=== PATIENT | male | born 1955 | race African-American/Black ===

== ENCOUNTER 2017-10-12 14:54 | Inpatient (IN) | payer OTHER ==
[2017-10-12 17:00] VITALS: BMI 22.3
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
[2017-10-12] MEDS ORDERED: NICOTINE POLACRILEX 2 MG GUM BUC PRN (21:05)
[2017-10-12] MEDS ORDERED: chlordiazePOXIDE HCL 25 MG CAPSULE PO ONE (21:05)
[2017-10-12] MEDS ORDERED: MENTHOL/PHENOL 1 EACH UD MM PRN (21:05)
[2017-10-12] MEDS ORDERED: P-EPHED 60MG/TRIPROLIDI 2.5MG TABLET PO PRN (21:05)
[2017-10-12] MEDS ORDERED: MAGNESIUM HYDROX 2400MG/30ML ORAL SUSPENSION 30 ML CUP PO PRN (21:05)
[2017-10-12] MEDS ORDERED: ACETAMINOPHEN 325 MG TABLET (FP) PO PRN (21:05)
[2017-10-12] MEDS ORDERED: TRIMETHOBENZAMIDE HCL 200MG/2ML INJ IM ONE (21:08)
[2017-10-12] MEDS ORDERED: chlordiazePOXIDE HCL 25 MG CAPSULE PO PRN (21:13)
[2017-10-12] MEDS ORDERED: guaiFENesin/D-METHORPHAN HB 10 ML UNIT-DOSE CUPS PO PRN (21:15)
[2017-10-12] MEDS ORDERED: hydrOXYzine PAMOATE 50 MG CAPSULE (FP) PO PRN (21:15)
[2017-10-12] MEDS ORDERED: IBUPROFEN 400 MG TABLET (FP) PO PRN (21:15)
[2017-10-12] MEDS ORDERED: LOPERAMIDE HCL 2 MG CAPSULE PO PRN (21:16)
[2017-10-12] MEDS ORDERED: MAG HYDROX/AL HYDROX/SIMETH 30 ML UNIT-DOSE CUP PO PRN (21:16)
[2017-10-12] MEDS ORDERED: MAGNESIUM CITRATE 300 ML BOTTLE PO PRN (21:17)
[2017-10-12] MEDS: CYCLOBENZAPRINE HCL 5 MG TABLET PO SCH (21:56)
[2017-10-12] MEDS: THIAMINE HCL 100 MG TABLET (FP) PO SCH (21:56)
[2017-10-12] MEDS ORDERED: MELATONIN 5 MG TABLETS PO PRN (22:00)
[2017-10-12] MEDS: chlordiazePOXIDE HCL 25 MG CAPSULE PO SCH (22:03)
[2017-10-13] MEDS: CYCLOBENZAPRINE HCL 5 MG TABLET PO SCH ×3 (06:01→22:33)
[2017-10-13] MEDS: chlordiazePOXIDE HCL 25 MG CAPSULE PO SCH ×4 (06:01→22:33)
[2017-10-13] MEDS ORDERED: METHADONE 40 MG, METHADONE 30 MG PO ONE (09:00)
[2017-10-13] MEDS ORDERED: METHADONE HCL 10 MG TABLET PO ONE (09:30)
[2017-10-13] MEDS ORDERED: METHADONE HCL 10 MG TABLET ONE (10:07)
[2017-10-13] MEDS ORDERED: METHADONE HCL 40 MG DISPERSABLE TABLET ONE (10:07)
[2017-10-13 10:12] LABS: HEMATOCRIT 34.3 % (35.4-49); HEMOGLOBIN 11.1 GM/dL (11.7-16.9); MCHC 32.4 g/dl (32.0-35.9); MEAN CELL VOLUME 83.2 fl (80-96); MEAN PLT VOLUME 8.7 fl (7.5-11.1); PLATELET COUNT 116 K/MM3 (134-434); RBC 4.12 M/mm3 (4.00-5.60); RDW 17.4 % (11.9-15.9); WHITE BLOOD COUNT 2.9 K/mm3 (4.0-10.0)
[2017-10-13 10:21] LABS: ALBUMIN 2.8 g/dl (3.4-5.0); ANION GAP 9 (8-16); BILIRUBIN,TOTAL 1.1 mg/dL (0.2-1.0); BLOOD UREA NITROGEN 5 mg/dL (7-18); CHLORIDE 94 mmol/L (98-107); CO2 33 mmol/L (21-32); GLUCOSE,RANDOM 86 mg/dL (74-106); POTASSIUM 3.7 mmol/L (3.5-5.1); SGOT/AST 235 U/L (15-37); SGPT/ALT 77 U/L (12-78); SODIUM 136 mmol/L (136-145); TOT PROT 6.2 g/dl (6.4-8.2)
[2017-10-13 10:24] LABS: ALK PHOS 151 U/L (45-117); CALCIUM 8.1 mg/dL (8.5-10.1); CREATININE 0.6 mg/dL (0.7-1.3)
[2017-10-13] MEDS: NICOTINE 14 MG/24 HOURS TOPICAL PATCH TD SCH (10:25)
[2017-10-13] MEDS: PRENATAL VITAMINS W/ FOLIC ACID TABLET (FP) PO SCH (10:25)
--- NOTE | 2017-10-13 11:28 | EKG ---
Test Reason : Blood Pressure : / mmHG Vent. Rate : 109 BPM Atrial Rate : 109 BPM P-R Int : 132 ms QRS Dur : 072 ms QT Int : 314 ms P-R-T Axes : 075 -22 066 degrees QTc Int : 422 ms SINUS TACHYCARDIA POOR R WAVE PROGRESSION POSSIBLE RIGHT VENTRICULAR HYPERTROPHY NO PREVIOUS ECGS AVAILABLE Confirmed by MAJO BEGUM MD ([id number]) on 10/13/2017 11:27:46 AM Referred By: Confirmed By:MAJO BEGUM MD
--- NOTE | 2017-10-13 12:36 | PN ---
S CIWA - CIWA Score Nausea/Vomitin-Mild Nausea/No Vomiting Muscle Tremors: 4-Moderate,w/Arms Extend Anxiety: 3 Agitation: 3 Paroxysmal Sweats: 1-Minimal Palms Moist Orientation: 0-Oriented Tacttile Disturbances: 0-None Auditory Disturbances: 0-None Visual Disturbances: 0-None Headache: 0-None Present CIWA-Ar Total Score: 12 BHS Progress Note (SOAP) Subjective: sweat tremor anxiety restlessness trouble sleep at night Objective: 10/13/17 12:33 Vital Signs Temperature 98.2 F 10/13/17 09:43 Pulse Rate 103 H 10/13/17 09:43 Respiratory Rate 18 10/13/17 09:43 Blood Pressure 115/74 10/13/17 09:43 O2 Sat by Pulse Oximetry (%) Laboratory Last Values WBC 2.9 K/mm3 (4.0-10.0) L D 10/13/17 07:50 RBC 4.12 M/mm3 (4.00-5.60) 10/13/17 07:50 Hgb 11.1 GM/dL (11.7-16.9) L 10/13/17 07:50 Hct 34.3 % (35.4-49) L 10/13/17 07:50 MCV 83.2 fl (80-96) 10/13/17 07:50 MCH 27.0 pg (25.7-33.7) 10/13/17 07:50 MCHC 32.4 g/dl (32.0-35.9) 10/13/17 07:50 RDW 17.4 % (11.9-15.9) H 10/13/17 07:50 Plt Count 116 K/MM3 (134-434) L D 10/13/17 07:50 MPV 8.7 fl (7.5-11.1) 10/13/17 07:50 Sodium 136 mmol/L (136-145) 10/13/17 07:50 Potassium 3.7 mmol/L (3.5-5.1) D 10/13/17 07:50 Chloride 94 mmol/L (98-107) L 10/13/17 07:50 Carbon Dioxide 33 mmol/L (21-32) H 10/13/17 07:50 Anion Gap 9 (8-16) 10/13/17 07:50 BUN 5 mg/dL (7-18) L D 10/13/17 07:50 Creatinine 0.6 mg/dL (0.7-1.3) L 10/13/17 07:50 Creat Clearance w eGFR > 60 (>60) 10/13/17 07:50 Random Glucose 86 mg/dL (74-106) D 10/13/17 07:50 Calcium 8.1 mg/dL (8.5-10.1) L 10/13/17 07:50 Total Bilirubin 1.1 mg/dL (0.2-1.0) H D 10/13/17 07:50 AST 235 U/L (15-37) H D 10/13/17 07:50 ALT 77 U/L (12-78) D 10/13/17 07:50 Alkaline Phosphatase 151 U/L (45-117) H D 10/13/17 07:50 Total Protein 6.2 g/dl (6.4-8.2) L 10/13/17 07:50 Albumin 2.8 g/dl (3.4-5.0) L 10/13/17 07:50 RPR Titer Nonreactive (NONREACTIVE) 10/13/17 07:50 lab noted repeat AST Assessment: 10/13/17 12:35 withdrawal sx Plan: continue detox
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
[2017-10-13] MEDS: THIAMINE HCL 100 MG TABLET (FP) PO SCH (22:33)
[2017-10-13] MEDS: risperiDONE 2 MG TABLET PO SCH (22:33)
[2017-10-13 23:16] LABS: URINE APPEARANCE TURBID; URINE COLOR AMBER; URINE GLUCOSE (UA) NEGATIVE (NEGATIVE); URINE KETONE 1+ (NEGATIVE); URINE LEUK ESTERASE TRACE (NEGATIVE); URINE NITRITE NEGATIVE (NEGATIVE); URINE UROBILINOGEN 4.0 E.U/dl mg/dL (0.2-1.0)
[2017-10-13 23:23] LABS: URINE PROTEIN 2+ (NEGATIVE)
[2017-10-13 23:28] LABS: URINE BACTERIA RARE /hpf (NONE SEEN); URINE MUCUS MANY
[2017-10-14] MEDS ORDERED: METHADONE HCL 40 MG DISPERSABLE TABLET ONE (05:48)
[2017-10-14] MEDS ORDERED: METHADONE HCL 10 MG TABLET ONE (05:48)
[2017-10-14] MEDS ORDERED: METHADONE HCL 10 MG TABLET PO SCH (06:00)
[2017-10-14] MEDS: METHADONE 40 MG, METHADONE 30 MG PO SCH (06:54)
[2017-10-14] MEDS: CYCLOBENZAPRINE HCL 5 MG TABLET PO SCH ×3 (06:55→22:02)
[2017-10-14] MEDS: chlordiazePOXIDE HCL 25 MG CAPSULE PO SCH ×3 (06:55→18:25)
--- NOTE | 2017-10-14 08:49 | EKG ---
Test Reason : Blood Pressure : / mmHG Vent. Rate : 085 BPM Atrial Rate : 085 BPM P-R Int : 140 ms QRS Dur : 070 ms QT Int : 394 ms P-R-T Axes : 060 -29 -13 degrees QTc Int : 468 ms NORMAL SINUS RHYTHM NORMAL ECG WHEN COMPARED WITH ECG OF 12-OCT-2017 22:15, ST ELEVATION NOW PRESENT IN ANTERIOR LEADS NONSPECIFIC T WAVE ABNORMALITY NOW EVIDENT IN INFERIOR LEADS Confirmed by YAIMA FLORES, DIA ([id number]) on 10/14/2017 8:49:18 AM Referred By: Confirmed By:DIA ERWIN MD
[2017-10-14] MEDS: PRENATAL VITAMINS W/ FOLIC ACID TABLET (FP) PO SCH (10:36)
[2017-10-14 10:45] LABS: SGOT/AST 164 U/L (15-37); SGPT/ALT 65 U/L (12-78)
[2017-10-14] MEDS: NICOTINE 14 MG/24 HOURS TOPICAL PATCH TD SCH (12:42)
--- NOTE | 2017-10-14 13:18 | PN ---
S CIWA - CIWA Score Nausea/Vomitin Muscle Tremors: 3 Anxiety: 3 Agitation: 2 Paroxysmal Sweats: 1-Minimal Palms Moist Orientation: 0-Oriented Tacttile Disturbances: 1-Very Mild Itch/Numbness Auditory Disturbances: 1-Very Mild Visual Disturbances: 0-None Headache: 2-Mild CIWA-Ar Total Score: 16 S Progress Note (SOAP) Subjective: ALERT,IRRITABLE,ANXIOUS,INTERRUPTED SLEEP,TREMOR Objective: 10/14/17 13:16 Vital Signs Temperature 96.4 F L 10/14/17 09:27 Pulse Rate 96 H 10/14/17 09:27 Respiratory Rate 16 10/14/17 09:27 Blood Pressure 100/64 10/14/17 09:27 O2 Sat by Pulse Oximetry (%) Laboratory Last Values WBC 2.9 K/mm3 (4.0-10.0) L D 10/13/17 07:50 RBC 4.12 M/mm3 (4.00-5.60) 10/13/17 07:50 Hgb 11.1 GM/dL (11.7-16.9) L 10/13/17 07:50 Hct 34.3 % (35.4-49) L 10/13/17 07:50 MCV 83.2 fl (80-96) 10/13/17 07:50 MCH 27.0 pg (25.7-33.7) 10/13/17 07:50 MCHC 32.4 g/dl (32.0-35.9) 10/13/17 07:50 RDW 17.4 % (11.9-15.9) H 10/13/17 07:50 Plt Count 116 K/MM3 (134-434) L D 10/13/17 07:50 MPV 8.7 fl (7.5-11.1) 10/13/17 07:50 Sodium 136 mmol/L (136-145) 10/13/17 07:50 Potassium 3.7 mmol/L (3.5-5.1) D 10/13/17 07:50 Chloride 94 mmol/L (98-107) L 10/13/17 07:50 Carbon Dioxide 33 mmol/L (21-32) H 10/13/17 07:50 Anion Gap 9 (8-16) 10/13/17 07:50 BUN 5 mg/dL (7-18) L D 10/13/17 07:50 Creatinine 0.6 mg/dL (0.7-1.3) L 10/13/17 07:50 Creat Clearance w eGFR > 60 (>60) 10/13/17 07:50 Random Glucose 86 mg/dL (74-106) D 10/13/17 07:50 Calcium 8.1 mg/dL (8.5-10.1) L 10/13/17 07:50 Total Bilirubin 1.1 mg/dL (0.2-1.0) H D 10/13/17 07:50 AST 164 U/L (15-37) H D 10/14/17 07:50 ALT 65 U/L (12-78) 10/14/17 07:50 Alkaline Phosphatase 151 U/L (45-117) H D 10/13/17 07:50 Total Protein 6.2 g/dl (6.4-8.2) L 10/13/17 07:50 Albumin 2.8 g/dl (3.4-5.0) L 10/13/17 07:50 Urine Color Brenda 10/13/17 17:20 Urine Appearance Turbid 10/13/17 17:20 Urine pH 6.0 (5.0-8.0) 10/13/17 17:20 Ur Specific [place] 1.027 (1.001-1.035) 10/13/17 17:20 Urine Protein 2+ (NEGATIVE) H 10/13/17 17:20 Urine Glucose (UA) Negative (NEGATIVE) 10/13/17 17:20 Urine Ketones 1+ (NEGATIVE) H 10/13/17 17:20 Urine Blood Negative (NEGATIVE) 10/13/17 17:20 Urine Nitrite Negative (NEGATIVE) 10/13/17 17:20 Urine Bilirubin 2.0 (<2.0 mg/dL) 10/13/17 17:20 Urine Urobilinogen 4.0 e.u/dl mg/dL (0.2-1.0) 10/13/17 17:20 Ur Leukocyte Esterase Trace (NEGATIVE) 10/13/17 17:20 Urine WBC (Auto) 1 /hpf (3-5) 10/13/17 17:20 Urine RBC (Auto) <1 /hpf (0-3) 10/13/17 17:20 Urine Bacteria Rare /hpf (NONE SEEN) 10/13/17 17:20 Urine Mucus Many 10/13/17 17:20 RPR Titer Nonreactive (NONREACTIVE) 10/13/17 07:50 Assessment: 10/14/17 13:17 WITHDRAWAL SYMPTOM Plan: CONTINUE DETOX,D/C TYLENOL FOR ELEVATION OF AST
[2017-10-14] MEDS: risperiDONE 2 MG TABLET PO SCH (22:02)
[2017-10-14] MEDS: chlordiazePOXIDE 5 MG CAPSULE PO SCH (22:02)
[2017-10-14] MEDS: THIAMINE HCL 100 MG TABLET (FP) PO SCH (22:02)
[2017-10-15] MEDS ORDERED: METHADONE HCL 10 MG TABLET ONE (04:58)
[2017-10-15] MEDS ORDERED: METHADONE HCL 40 MG DISPERSABLE TABLET ONE (04:58)
[2017-10-15] MEDS: chlordiazePOXIDE 5 MG CAPSULE PO SCH ×3 (06:43→16:33)
[2017-10-15] MEDS: CYCLOBENZAPRINE HCL 5 MG TABLET PO SCH ×3 (06:43→23:29)
[2017-10-15] MEDS: METHADONE 40 MG, METHADONE 30 MG PO SCH (06:43)
[2017-10-15] MEDS: NICOTINE 14 MG/24 HOURS TOPICAL PATCH TD SCH (10:45)
[2017-10-15] MEDS: PRENATAL VITAMINS W/ FOLIC ACID TABLET (FP) PO SCH (10:46)
--- NOTE | 2017-10-15 15:37 | PN ---
BHS Progress Note (SOAP) Subjective: alert,irritable,interrupted sleep Objective: 10/15/17 15:37 Vital Signs Temperature 97.1 F L 10/15/17 14:14 Pulse Rate 74 10/15/17 14:14 Respiratory Rate 18 10/15/17 14:14 Blood Pressure 143/90 10/15/17 14:14 O2 Sat by Pulse Oximetry (%) Assessment: 10/15/17 15:37 withdrawal symptom Plan: continue detox,discharge in am
[2017-10-15] MEDS: risperiDONE 2 MG TABLET PO SCH (23:29)
[2017-10-15] MEDS: chlordiazePOXIDE HCL 10 MG CAPSULE PO SCH (23:29)
[2017-10-15] MEDS: THIAMINE HCL 100 MG TABLET (FP) PO SCH (23:29)
[2017-10-16] MEDS ORDERED: METHADONE HCL 40 MG DISPERSABLE TABLET ONE (05:41)
[2017-10-16] MEDS ORDERED: METHADONE HCL 10 MG TABLET ONE (05:41)
[2017-10-16] MEDS: METHADONE 40 MG, METHADONE 30 MG PO SCH (06:31)
[2017-10-16] MEDS: CYCLOBENZAPRINE HCL 5 MG TABLET PO SCH ×3 (06:31→22:13)
[2017-10-16] MEDS: chlordiazePOXIDE HCL 10 MG CAPSULE PO SCH ×3 (06:31→17:54)
[2017-10-16] MEDS: NICOTINE 14 MG/24 HOURS TOPICAL PATCH TD SCH (11:32)
[2017-10-16] MEDS: PRENATAL VITAMINS W/ FOLIC ACID TABLET (FP) PO SCH (11:32)
--- NOTE | 2017-10-16 13:45 | PN ---
BHS Progress Note (SOAP) Subjective: ALERT,IRRTIABLE,INTERRUPTED SLEEP Objective: 10/16/17 13:44 Vital Signs Temperature 98.1 F 10/16/17 09:35 Pulse Rate 105 H 10/16/17 09:35 Respiratory Rate 16 10/16/17 09:35 Blood Pressure 100/70 10/16/17 09:35 O2 Sat by Pulse Oximetry (%) Assessment: 10/16/17 13:44 WITHDRAWAL SYMPTOM Plan: DISCHARGE IN AM
[2017-10-16] MEDS: risperiDONE 2 MG TABLET PO SCH (22:13)
[2017-10-16] MEDS: THIAMINE HCL 100 MG TABLET (FP) PO SCH (22:13)
[2017-10-17] MEDS ORDERED: METHADONE HCL 40 MG DISPERSABLE TABLET ONE (04:24)
[2017-10-17] MEDS ORDERED: METHADONE HCL 10 MG TABLET ONE (04:25)
[2017-10-17] MEDS: METHADONE 40 MG, METHADONE 30 MG PO SCH (05:22)
[2017-10-17] MEDS: CYCLOBENZAPRINE HCL 5 MG TABLET PO SCH ×2 (05:24→14:53)
--- NOTE | 2017-10-17 08:51 | DS ---
[facility] Detox Discharge Summary Admission Date: 10/12/17 Discharge Date: 10/17/17 - History Present History: Alcohol Dependence Additional Comments: 61 years old male admitted 10/12/17 for alcohol withdrawal sx completed alcohol detox regimen tolerated well denies alcohol withdrawal sx alert oriented x 3 no acute distress aftercare [facility] teaching on alcohol related liver diseases - Physical Exam Results Vital Signs: Vital Signs Temperature 97.3 F L 10/17/17 06:00 Pulse Rate 75 10/17/17 06:00 Respiratory Rate 18 10/17/17 06:00 Blood Pressure 149/90 10/17/17 06:00 O2 Sat by Pulse Oximetry (%) Pertinent Admission Physical Exam Findings: withdrawal sx Vital Signs Temperature 97.3 F L 10/17/17 06:00 Pulse Rate 75 10/17/17 06:00 Respiratory Rate 18 10/17/17 06:00 Blood Pressure 149/90 10/17/17 06:00 O2 Sat by Pulse Oximetry (%) Laboratory Last Values WBC 2.9 K/mm3 (4.0-10.0) L D 10/13/17 07:50 RBC 4.12 M/mm3 (4.00-5.60) 10/13/17 07:50 Hgb 11.1 GM/dL (11.7-16.9) L 10/13/17 07:50 Hct 34.3 % (35.4-49) L 10/13/17 07:50 MCV 83.2 fl (80-96) 10/13/17 07:50 MCH 27.0 pg (25.7-33.7) 10/13/17 07:50 MCHC 32.4 g/dl (32.0-35.9) 10/13/17 07:50 RDW 17.4 % (11.9-15.9) H 10/13/17 07:50 Plt Count 116 K/MM3 (134-434) L D 10/13/17 07:50 MPV 8.7 fl (7.5-11.1) 10/13/17 07:50 Sodium 136 mmol/L (136-145) 10/13/17 07:50 Potassium 3.7 mmol/L (3.5-5.1) D 10/13/17 07:50 Chloride 94 mmol/L (98-107) L 10/13/17 07:50 Carbon Dioxide 33 mmol/L (21-32) H 10/13/17 07:50 Anion Gap 9 (8-16) 10/13/17 07:50 BUN 5 mg/dL (7-18) L D 10/13/17 07:50 Creatinine 0.6 mg/dL (0.7-1.3) L 10/13/17 07:50 Creat Clearance w eGFR > 60 (>60) 10/13/17 07:50 Random Glucose 86 mg/dL (74-106) D 10/13/17 07:50 Calcium 8.1 mg/dL (8.5-10.1) L 10/13/17 07:50 Total Bilirubin 1.1 mg/dL (0.2-1.0) H D 10/13/17 07:50 AST 164 U/L (15-37) H D 10/14/17 07:50 ALT 65 U/L (12-78) 10/14/17 07:50 Alkaline Phosphatase 151 U/L (45-117) H D 10/13/17 07:50 Total Protein 6.2 g/dl (6.4-8.2) L 10/13/17 07:50 Albumin 2.8 g/dl (3.4-5.0) L 10/13/17 07:50 Urine Color Brenda 10/13/17 17:20 Urine Appearance Turbid 10/13/17 17:20 Urine pH 6.0 (5.0-8.0) 10/13/17 17:20 Ur Specific [place] 1.027 (1.001-1.035) 10/13/17 17:20 Urine Protein 2+ (NEGATIVE) H 10/13/17 17:20 Urine Glucose (UA) Negative (NEGATIVE) 10/13/17 17:20 Urine Ketones 1+ (NEGATIVE) H 10/13/17 17:20 Urine Blood Negative (NEGATIVE) 10/13/17 17:20 Urine Nitrite Negative (NEGATIVE) 10/13/17 17:20 Urine Bilirubin 2.0 (<2.0 mg/dL) 10/13/17 17:20 Urine Urobilinogen 4.0 e.u/dl mg/dL (0.2-1.0) 10/13/17 17:20 Ur Leukocyte Esterase Trace (NEGATIVE) 10/13/17 17:20 Urine WBC (Auto) 1 /hpf (3-5) 10/13/17 17:20 Urine RBC (Auto) <1 /hpf (0-3) 10/13/17 17:20 Urine Bacteria Rare /hpf (NONE SEEN) 10/13/17 17:20 Urine Mucus Many 10/13/17 17:20 RPR Titer Nonreactive (NONREACTIVE) 10/13/17 07:50 lab noted - Treatment Hospital Course: Detox Protocol Followed, Detoxed Safely, Responded well, Discharged Condition Good, Rehab Referral Accepted Patient has Accepted a [facility] Referral to: [facility] - Medication Discharge Medications: Ambulatory Orders Risperidone [Risperdal -] 3 mg PO DAILY 10/12/17 Trazodone HCl 100 mg PO HS 10/12/17 Risperidone [Risperdal -] 2 mg PO HS #30 tablet 10/13/17 - Diagnosis (1) Alcohol dependence with uncomplicated withdrawal Current Visit: Yes Status: Acute (2) Methadone maintenance therapy patient Current Visit: Yes Status: Chronic (3) Nicotine dependence Current Visit: Yes Status: Acute Qualifiers: Nicotine product type: cigarettes Substance use status: in withdrawal Qualified Code(s): F17.213 - Nicotine dependence, cigarettes, with withdrawal - AMA Did Patient Leave Against Medical Advice: No
[2017-10-17] MEDS: PRENATAL VITAMINS W/ FOLIC ACID TABLET (FP) PO SCH (10:50)
[2017-10-17] MEDS: NICOTINE 14 MG/24 HOURS TOPICAL PATCH TD SCH (10:51)
[2017-10-17 17:58] VITALS: BP 131/83; PULSE 71; TEMP 97.7
== END 2017-10-17 19:39 | disposition other institution (70) | DRG 773 ==
LOC: YASAS 14:54 → Y6N 20:18
PROVIDERS: ADMIT Surgery; ATTEND Surgery
PROC: HZ2ZZZZ Detoxification Services for Substance Abuse Treatment (ICD-10-PCS; principal; 2017-10-12)
DX: F11.20 Opioid dependence, uncomplicated (principal); F10.230 Alcohol dependence with withdrawal, uncomplicated; F17.213 Nicotine dependence, cigarettes, with withdrawal; F31.60 Bipolar disorder, current episode mixed, unspecified; G25.1 Drug-induced tremor; M54.5 Low back pain; R11.2 Nausea with vomiting, unspecified; H91.91 Unspecified hearing loss, right ear
CPT/HCPCS: 36415; 71046-TC-FY; 80053; 81003; 81015; 84450; 84460; 85027; 86593; 93005; 93010

== ENCOUNTER 2017-10-17 19:00 | Inpatient (IN) | payer OTHER ==
[2017-10-17] MEDS ORDERED: IBUPROFEN 400 MG TABLET (FP) PO PRN (19:55)
[2017-10-17] MEDS ORDERED: ACETAMINOPHEN 325 MG TABLET (FP) PO PRN (19:55)
[2017-10-17] MEDS ORDERED: NICOTINE POLACRILEX 2 MG GUM BUC PRN (19:55)
[2017-10-17] MEDS ORDERED: MAGNESIUM CITRATE 300 ML BOTTLE PO PRN (19:55)
[2017-10-17] MEDS ORDERED: P-EPHED 60MG/TRIPROLIDI 2.5MG TABLET PO PRN (19:55)
[2017-10-17] MEDS ORDERED: LOPERAMIDE HCL 2 MG CAPSULE PO PRN (19:55)
[2017-10-17] MEDS ORDERED: MENTHOL/PHENOL 1 EACH UD MM PRN (19:55)
[2017-10-17] MEDS ORDERED: guaiFENesin/D-METHORPHAN HB 10 ML UNIT-DOSE CUPS PO PRN (19:55)
[2017-10-17] MEDS ORDERED: hydrOXYzine PAMOATE 50 MG CAPSULE (FP) PO PRN (19:55)
[2017-10-17] MEDS ORDERED: MAG HYDROX/AL HYDROX/SIMETH 30 ML UNIT-DOSE CUP PO PRN (19:55)
[2017-10-17] MEDS: THIAMINE HCL 100 MG TABLET (FP) PO SCH (21:51)
[2017-10-17] MEDS ORDERED: MELATONIN 5 MG TABLETS PO PRN (22:00)
[2017-10-18] MEDS: NICOTINE 14 MG/24 HOURS TOPICAL PATCH TD SCH (10:34)
[2017-10-18] MEDS: PRENATAL VITAMINS W/ FOLIC ACID TABLET (FP) PO SCH (10:34)
[2017-10-18] MEDS ORDERED: METHADONE HCL 10 MG TABLET PO ONE (13:03)
[2017-10-18] MEDS ORDERED: METHADONE HCL 40 MG DISPERSABLE TABLET ONE (13:38)
[2017-10-18] MEDS ORDERED: METHADONE HCL 10 MG TABLET ONE (13:38)
[2017-10-18] MEDS ORDERED: METHADONE 40 MG, METHADONE 30 MG PO ONE (13:45)
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
[2017-10-18] MEDS: risperiDONE 2 MG TABLET PO SCH (21:44)
[2017-10-18] MEDS: traZODone HCL 50 MG TABLET (FP) PO SCH (21:45)
[2017-10-18] MEDS: THIAMINE HCL 100 MG TABLET (FP) PO SCH (21:45)
[2017-10-19] MEDS ORDERED: METHADONE HCL 10 MG TABLET ONE (05:19)
[2017-10-19] MEDS ORDERED: METHADONE HCL 40 MG DISPERSABLE TABLET ONE (05:19)
[2017-10-19] MEDS ORDERED: METHADONE HCL 5 MG TABLET (FOR DETOX USE ONLY) PO SCH (06:00)
[2017-10-19] MEDS: METHADONE 40 MG, METHADONE 30 MG PO SCH (06:41)
[2017-10-19] MEDS: PRENATAL VITAMINS W/ FOLIC ACID TABLET (FP) PO SCH (10:30)
[2017-10-19] MEDS: NICOTINE 14 MG/24 HOURS TOPICAL PATCH TD SCH (10:30)
[2017-10-19] MEDS: risperiDONE 2 MG TABLET PO SCH (21:50)
[2017-10-19] MEDS: THIAMINE HCL 100 MG TABLET (FP) PO SCH (21:50)
[2017-10-19] MEDS: traZODone HCL 50 MG TABLET (FP) PO SCH (21:50)
[2017-10-20] MEDS ORDERED: METHADONE HCL 40 MG DISPERSABLE TABLET ONE (07:00)
[2017-10-20] MEDS ORDERED: METHADONE HCL 10 MG TABLET ONE (07:00)
[2017-10-20] MEDS: METHADONE 40 MG, METHADONE 30 MG PO SCH (07:03)
[2017-10-20] MEDS: PRENATAL VITAMINS W/ FOLIC ACID TABLET (FP) PO SCH (10:31)
[2017-10-20] MEDS: NICOTINE 14 MG/24 HOURS TOPICAL PATCH TD SCH (10:32)
[2017-10-20] MEDS: THIAMINE HCL 100 MG TABLET (FP) PO SCH (21:30)
[2017-10-20] MEDS: risperiDONE 2 MG TABLET PO SCH (21:30)
[2017-10-20] MEDS: traZODone HCL 50 MG TABLET (FP) PO SCH (21:30)
[2017-10-21] MEDS ORDERED: METHADONE HCL 40 MG DISPERSABLE TABLET ONE (03:27)
[2017-10-21] MEDS ORDERED: METHADONE HCL 10 MG TABLET ONE (03:27)
[2017-10-21] MEDS: METHADONE 40 MG, METHADONE 30 MG PO SCH (06:38)
[2017-10-21] MEDS: PRENATAL VITAMINS W/ FOLIC ACID TABLET (FP) PO SCH (10:31)
[2017-10-21] MEDS: NICOTINE 14 MG/24 HOURS TOPICAL PATCH TD SCH (10:31)
[2017-10-21] MEDS: risperiDONE 2 MG TABLET PO SCH (21:48)
[2017-10-21] MEDS: THIAMINE HCL 100 MG TABLET (FP) PO SCH (21:48)
[2017-10-21] MEDS: traZODone HCL 50 MG TABLET (FP) PO SCH (21:48)
[2017-10-22] MEDS ORDERED: METHADONE HCL 40 MG DISPERSABLE TABLET ONE (03:53)
[2017-10-22] MEDS ORDERED: METHADONE HCL 10 MG TABLET ONE (03:53)
[2017-10-22] MEDS: METHADONE 40 MG, METHADONE 30 MG PO SCH (06:24)
[2017-10-22] MEDS: NICOTINE 14 MG/24 HOURS TOPICAL PATCH TD SCH (10:14)
[2017-10-22] MEDS: PRENATAL VITAMINS W/ FOLIC ACID TABLET (FP) PO SCH (10:14)
[2017-10-22] MEDS: risperiDONE 2 MG TABLET PO SCH (21:42)
[2017-10-22] MEDS: THIAMINE HCL 100 MG TABLET (FP) PO SCH (21:42)
[2017-10-22] MEDS: traZODone HCL 50 MG TABLET (FP) PO SCH (21:42)
[2017-10-23] MEDS ORDERED: METHADONE HCL 40 MG DISPERSABLE TABLET ONE (04:39)
[2017-10-23] MEDS ORDERED: METHADONE HCL 10 MG TABLET ONE (04:39)
[2017-10-23] MEDS: METHADONE 40 MG, METHADONE 30 MG PO SCH (06:08)
[2017-10-23] MEDS: PRENATAL VITAMINS W/ FOLIC ACID TABLET (FP) PO SCH (10:28)
[2017-10-23] MEDS: NICOTINE 14 MG/24 HOURS TOPICAL PATCH TD SCH (10:28)
[2017-10-23] MEDS: traZODone HCL 50 MG TABLET (FP) PO SCH (21:46)
[2017-10-23] MEDS: THIAMINE HCL 100 MG TABLET (FP) PO SCH (21:46)
[2017-10-23] MEDS: risperiDONE 2 MG TABLET PO SCH (21:46)
[2017-10-24] MEDS ORDERED: METHADONE HCL 40 MG DISPERSABLE TABLET ONE (05:18)
[2017-10-24] MEDS ORDERED: METHADONE HCL 10 MG TABLET ONE (05:18)
[2017-10-24] MEDS: METHADONE 40 MG, METHADONE 30 MG PO SCH (06:34)
[2017-10-24] MEDS: MAGNESIUM HYDROX 2400MG/30ML ORAL SUSPENSION 30 ML CUP PO PRN (06:41)
[2017-10-24] MEDS: PRENATAL VITAMINS W/ FOLIC ACID TABLET (FP) PO SCH (10:45)
[2017-10-24] MEDS: NICOTINE 14 MG/24 HOURS TOPICAL PATCH TD SCH (10:45)
--- NOTE | 2017-10-24 13:00 | PN ---
[facility] Progress Note Note: Vital Signs Temperature 97.8 F 10/24/17 07:15 Pulse Rate 86 10/24/17 07:15 Respiratory Rate 16 10/24/17 07:15 Blood Pressure 117/78 10/24/17 07:15 O2 Sat by Pulse Oximetry (%) Patient currently linked to MMTP at [facility]. Methadone dose 70 mg qd renewed today for the next 7 days. Dose verified by Faby Castillo RN with [facility]. Continue to monitor
[2017-10-24] MEDS: traZODone HCL 50 MG TABLET (FP) PO SCH (21:53)
[2017-10-24] MEDS: THIAMINE HCL 100 MG TABLET (FP) PO SCH (21:53)
[2017-10-24] MEDS: risperiDONE 2 MG TABLET PO SCH (21:54)
[2017-10-25] MEDS ORDERED: METHADONE HCL 10 MG TABLET ONE (04:45)
[2017-10-25] MEDS ORDERED: METHADONE HCL 40 MG DISPERSABLE TABLET ONE (04:45)
[2017-10-25] MEDS: METHADONE 40 MG, METHADONE 30 MG PO SCH (06:07)
[2017-10-25] MEDS: PRENATAL VITAMINS W/ FOLIC ACID TABLET (FP) PO SCH (10:31)
[2017-10-25] MEDS: NICOTINE 14 MG/24 HOURS TOPICAL PATCH TD SCH (10:31)
--- NOTE | 2017-10-25 14:02 | PN ---
S Progress Note Note: Patient presents with facial rash x 2 days. Vital Signs Temperature 97.3 F L 10/25/17 06:47 Pulse Rate 96 H 10/25/17 06:47 Respiratory Rate 18 10/25/17 06:47 Blood Pressure 129/93 10/25/17 06:47 O2 Sat by Pulse Oximetry (%) Subj: patient reports having rash around mouth x 2 days. +pruritis. Denies pain to skin area. Obj: Skin: + facial rash surrounding mustache and rosenbaum. No open areas or swelling noted. A/P: Facial dermatitis Will order clotrimazole cream continue to monitor clinically
[2017-10-25] MEDS: traZODone HCL 50 MG TABLET (FP) PO SCH (21:18)
[2017-10-25] MEDS: risperiDONE 2 MG TABLET PO SCH (21:18)
[2017-10-25] MEDS: THIAMINE HCL 100 MG TABLET (FP) PO SCH (21:18)
[2017-10-25] MEDS: CLOTRIMAZOLE 1% CREAM 15 GM TUBE TP SCH (21:18)
[2017-10-26] MEDS ORDERED: METHADONE HCL 10 MG TABLET ONE (05:58)
[2017-10-26] MEDS ORDERED: METHADONE HCL 40 MG DISPERSABLE TABLET ONE (05:58)
[2017-10-26] MEDS: METHADONE 40 MG, METHADONE 30 MG PO SCH (06:45)
[2017-10-26] MEDS: PRENATAL VITAMINS W/ FOLIC ACID TABLET (FP) PO SCH (10:22)
[2017-10-26] MEDS: NICOTINE 14 MG/24 HOURS TOPICAL PATCH TD SCH (10:23)
[2017-10-26] MEDS: CLOTRIMAZOLE 1% CREAM 15 GM TUBE TP SCH ×2 (10:24→21:50)
[2017-10-26] MEDS: risperiDONE 2 MG TABLET PO SCH (21:50)
[2017-10-26] MEDS: THIAMINE HCL 100 MG TABLET (FP) PO SCH (21:50)
[2017-10-26] MEDS: traZODone HCL 50 MG TABLET (FP) PO SCH (21:50)
[2017-10-27] MEDS ORDERED: METHADONE HCL 10 MG TABLET ONE (04:49)
[2017-10-27] MEDS ORDERED: METHADONE HCL 40 MG DISPERSABLE TABLET ONE (04:50)
[2017-10-27] MEDS: METHADONE 40 MG, METHADONE 30 MG PO SCH (06:11)
[2017-10-27] MEDS: PRENATAL VITAMINS W/ FOLIC ACID TABLET (FP) PO SCH (10:29)
[2017-10-27] MEDS: NICOTINE 14 MG/24 HOURS TOPICAL PATCH TD SCH (10:29)
[2017-10-27] MEDS: CLOTRIMAZOLE 1% CREAM 15 GM TUBE TP SCH ×2 (10:30→21:23)
[2017-10-27] MEDS: traZODone HCL 50 MG TABLET (FP) PO SCH (21:23)
[2017-10-27] MEDS: risperiDONE 2 MG TABLET PO SCH (21:23)
[2017-10-27] MEDS: THIAMINE HCL 100 MG TABLET (FP) PO SCH (21:23)
[2017-10-28] MEDS ORDERED: METHADONE HCL 10 MG TABLET ONE (04:46)
[2017-10-28] MEDS ORDERED: METHADONE HCL 40 MG DISPERSABLE TABLET ONE (04:46)
[2017-10-28] MEDS: METHADONE 40 MG, METHADONE 30 MG PO SCH (06:01)
[2017-10-28] MEDS: PRENATAL VITAMINS W/ FOLIC ACID TABLET (FP) PO SCH (10:51)
[2017-10-28] MEDS: CLOTRIMAZOLE 1% CREAM 15 GM TUBE TP SCH ×2 (10:52→21:35)
[2017-10-28] MEDS: NICOTINE 14 MG/24 HOURS TOPICAL PATCH TD SCH (10:52)
[2017-10-28] MEDS: traZODone HCL 50 MG TABLET (FP) PO SCH (21:34)
[2017-10-28] MEDS: THIAMINE HCL 100 MG TABLET (FP) PO SCH (21:35)
[2017-10-28] MEDS: risperiDONE 2 MG TABLET PO SCH (21:35)
[2017-10-29] MEDS ORDERED: METHADONE HCL 40 MG DISPERSABLE TABLET ONE (04:41)
[2017-10-29] MEDS ORDERED: METHADONE HCL 10 MG TABLET ONE (04:41)
[2017-10-29] MEDS: METHADONE 40 MG, METHADONE 30 MG PO SCH (06:03)
[2017-10-29] MEDS: PRENATAL VITAMINS W/ FOLIC ACID TABLET (FP) PO SCH (10:20)
[2017-10-29] MEDS: CLOTRIMAZOLE 1% CREAM 15 GM TUBE TP SCH ×2 (10:21→21:36)
[2017-10-29] MEDS: NICOTINE 14 MG/24 HOURS TOPICAL PATCH TD SCH (10:21)
[2017-10-29] MEDS: THIAMINE HCL 100 MG TABLET (FP) PO SCH (21:35)
[2017-10-29] MEDS: risperiDONE 2 MG TABLET PO SCH (21:35)
[2017-10-29] MEDS: MAGNESIUM HYDROX 2400MG/30ML ORAL SUSPENSION 30 ML CUP PO PRN (21:35)
[2017-10-29] MEDS: traZODone HCL 50 MG TABLET (FP) PO SCH (21:35)
[2017-10-30] MEDS ORDERED: METHADONE HCL 10 MG TABLET ONE (04:27)
[2017-10-30] MEDS ORDERED: METHADONE HCL 40 MG DISPERSABLE TABLET ONE (04:27)
[2017-10-30] MEDS: METHADONE 40 MG, METHADONE 30 MG PO SCH (06:07)
[2017-10-30] MEDS: PRENATAL VITAMINS W/ FOLIC ACID TABLET (FP) PO SCH (10:38)
[2017-10-30] MEDS: NICOTINE 14 MG/24 HOURS TOPICAL PATCH TD SCH (10:38)
[2017-10-30] MEDS: CLOTRIMAZOLE 1% CREAM 15 GM TUBE TP SCH ×2 (10:38→22:02)
[2017-10-30] MEDS: MAGNESIUM HYDROX 2400MG/30ML ORAL SUSPENSION 30 ML CUP PO PRN (14:15)
[2017-10-30] MEDS: THIAMINE HCL 100 MG TABLET (FP) PO SCH (22:01)
[2017-10-30] MEDS: risperiDONE 2 MG TABLET PO SCH (22:01)
[2017-10-30] MEDS: traZODone HCL 50 MG TABLET (FP) PO SCH (22:01)
[2017-10-31] MEDS ORDERED: METHADONE HCL 10 MG TABLET ONE (04:52)
[2017-10-31] MEDS ORDERED: METHADONE HCL 40 MG DISPERSABLE TABLET ONE (04:52)
[2017-10-31] MEDS: METHADONE 40 MG, METHADONE 30 MG PO SCH (06:13)
[2017-10-31] MEDS: PRENATAL VITAMINS W/ FOLIC ACID TABLET (FP) PO SCH (10:32)
[2017-10-31] MEDS: CLOTRIMAZOLE 1% CREAM 15 GM TUBE TP SCH ×2 (10:33→21:34)
[2017-10-31] MEDS: NICOTINE 14 MG/24 HOURS TOPICAL PATCH TD SCH (10:33)
[2017-10-31] MEDS: traZODone HCL 50 MG TABLET (FP) PO SCH (21:34)
[2017-10-31] MEDS: risperiDONE 2 MG TABLET PO SCH (21:34)
[2017-10-31] MEDS: THIAMINE HCL 100 MG TABLET (FP) PO SCH (21:34)
[2017-11-01] MEDS ORDERED: METHADONE HCL 10 MG TABLET ONE (05:48)
[2017-11-01] MEDS ORDERED: METHADONE HCL 40 MG DISPERSABLE TABLET ONE (05:48)
[2017-11-01] MEDS: METHADONE 40 MG, METHADONE 30 MG PO SCH (06:05)
[2017-11-01] MEDS: PRENATAL VITAMINS W/ FOLIC ACID TABLET (FP) PO SCH (10:43)
[2017-11-01] MEDS: NICOTINE 14 MG/24 HOURS TOPICAL PATCH TD SCH (10:43)
[2017-11-01] MEDS: CLOTRIMAZOLE 1% CREAM 15 GM TUBE TP SCH ×2 (10:44→21:37)
[2017-11-01] MEDS: THIAMINE HCL 100 MG TABLET (FP) PO SCH (21:37)
[2017-11-01] MEDS: traZODone HCL 50 MG TABLET (FP) PO SCH (21:37)
[2017-11-01] MEDS: risperiDONE 2 MG TABLET PO SCH (21:37)
[2017-11-02] MEDS ORDERED: METHADONE HCL 40 MG DISPERSABLE TABLET ONE (03:44)
[2017-11-02] MEDS ORDERED: METHADONE HCL 10 MG TABLET ONE (03:44)
[2017-11-02] MEDS: METHADONE 40 MG, METHADONE 30 MG PO SCH (09:45)
[2017-11-02] MEDS: PRENATAL VITAMINS W/ FOLIC ACID TABLET (FP) PO SCH (10:37)
[2017-11-02] MEDS: NICOTINE 14 MG/24 HOURS TOPICAL PATCH TD SCH (10:37)
[2017-11-02] MEDS: CLOTRIMAZOLE 1% CREAM 15 GM TUBE TP SCH ×2 (10:38→21:35)
[2017-11-02] MEDS: THIAMINE HCL 100 MG TABLET (FP) PO SCH (21:35)
[2017-11-02] MEDS: traZODone HCL 50 MG TABLET (FP) PO SCH (21:35)
[2017-11-02] MEDS: risperiDONE 2 MG TABLET PO SCH (21:35)
[2017-11-03] MEDS ORDERED: METHADONE HCL 10 MG TABLET ONE (05:15)
[2017-11-03] MEDS ORDERED: METHADONE HCL 40 MG DISPERSABLE TABLET ONE (05:15)
[2017-11-03] MEDS: METHADONE 40 MG, METHADONE 30 MG PO SCH (06:17)
[2017-11-03 06:56] VITALS: BP 116/75; PULSE 74; TEMP 97.8
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
[2017-11-03] MEDS: CLOTRIMAZOLE 1% CREAM 15 GM TUBE TP SCH (10:44)
[2017-11-03] MEDS: NICOTINE 14 MG/24 HOURS TOPICAL PATCH TD SCH (10:45)
[2017-11-03] MEDS: PRENATAL VITAMINS W/ FOLIC ACID TABLET (FP) PO SCH (10:45)
== END 2017-11-03 09:45 | disposition home or self-care (01) | DRG 772 ==
LOC: YASAS 19:00 → Y5N 19:01
PROVIDERS: ADMIT Psychiatry & Neurology Psychiatry; ATTEND Psychiatry & Neurology Psychiatry
PROC: HZ42ZZZ Group Counseling for Substance Abuse Treatment, Cognitive-Behavioral (ICD-10-PCS; principal; 2017-10-17)
DX: F10.20 Alcohol dependence, uncomplicated (principal); F11.20 Opioid dependence, uncomplicated; F17.213 Nicotine dependence, cigarettes, with withdrawal; F31.9 Bipolar disorder, unspecified; L30.9 Dermatitis, unspecified